=== PATIENT | male | born 1960 | race Caucasian/White ===

== ENCOUNTER → 2025-03-27 | Outpatient (CLI) | payer OTHER ==
[~2025-03-27] MED LIST: AMIT50 PO; ASPI81CH PO; ATOR10 PO; B-12500 MC1; DICL75ER PO; LYCOPENE10 MG; METO25ER PO; MIRT15 PO; Norco 10-325 T1 EACH PO
== END | disposition home or self-care (01) ==
LOC: LAB SHORT 10:16 → LAB 10:16
DX: E03.9 Hypothyroidism, unspecified (principal)
CPT/HCPCS: 36415; 84443